=== PATIENT | male | born 1950 | race Caucasian/White ===

== ENCOUNTER 2019-02-21 08:20 | Day surgery (SDC) | payer MEDICARE ==
[~2019-02-21 08:20] MED LIST: Acetaminophen TAB* 325 MG PO PRN; Buffered Lidocaine 1% SYRIN* 1 ML/SYRINGE INTRADERM ONE
[2019-02-21] MEDS ORDERED: Midazolam* 1 MG/ML 5 ML VIAL (5 MG) ONE (10:13)
[2019-02-21 12:00] VITALS: BP 147/78
--- NOTE | 2019-02-21 12:54 | OP ---
OPERATIVE REPORT: DATE OF OPERATION: DATE OF : 54 SURGEON: Mathew Avila MD. PRE-OP DIAGNOSIS: Cataract, left eye. POST-OP DIAGNOSIS: Cataract, left eye. OPERATIVE PROCEDURE: Extracapsular cataract extraction with IOL implant, left eye. DESCRIPTION OF PROCEDURE: The patient was brought to the operating room after being given 1/2% Alcai ne with epinephrine drops in the preoperative area. The eye was prepped and draped in the usual ster ile fashion. Sterile drape and eyelid speculum were placed. Again, topical 1/2% Alcaine with epinep hrine was given. A paracentesis incision was made at the 3 o'clock position with the No.75 blade. Cl ear cornea incision 2.2 x 2.2-mm was created at the 6 o'clock position starting at the anterior limbu s using the 2.2-mm keratome. The anterior chamber was irrigated with 0.4 mL of 1% non-preservative i ntracameral lidocaine and filled with DisCoVisc. A capsulorrhexis was completed using the cystotome and the Utrata forceps. Hydrodissection was performed with balanced salt solution. The lens nucleus was removed with the Phacoemulsification handpiece without incident. Cortex was removed with the irr igation-aspiration handpiece. The capsular bag was re-inflated using DisCoVisc and an SN60WF 11.5 im plant was inserted with the shooter. The irrigation-aspiration handpiece was used to remove all resi dual DisCoVisc. The eye was refilled with balanced salt solution and the wound checked and found to be watertight. Topical Maxitrol drops were given. [id number]/[facility] #: [id number]
[2019-02-21] MEDS ORDERED: acetaZOLAMIDE TAB* 250 MG ONE (13:48)
[2019-02-21] MEDS ORDERED: Povidone Iodine 5% OPTH* 30 ML BTL ONE (13:48)
[2019-02-21] MEDS ORDERED: Lidocaine 1%* 5 ML VIAL ONE (13:48)
[2019-02-21] MEDS ORDERED: Lidocaine 2% EPI 1:200000 MPF*10-20 ML VIAL ONE (13:48)
[2019-02-21] MEDS ORDERED: Phenylephrine OPHTH SOL 2.5%* 2 ML ONE (13:48)
[2019-02-21] MEDS ORDERED: Cyclopentolate 1% OPTH.SOL* 2 ML BTL ONE (13:48)
[2019-02-21] MEDS ORDERED: Ketorolac 0.5% OPHTH (NF) 0.5 % 5 ML BTL ONE (13:48)
[2019-02-21] MEDS ORDERED: Neomycin/Polymy/Dex OPTH.SUSP* MAXITROL 0.1% 5 ML ONE (13:48)
[2019-02-21] MEDS ORDERED: Proparacaine 0.5% OPHTH.SOL* 15 ML BTL ONE (13:49)
== END 2019-02-21 12:01 | disposition home or self-care (01) ==
LOC: OREAST 08:20
PROVIDERS: ATTEND Specialist
DX: H25.812 Combined forms of age-related cataract, left eye (principal); E11.9 Type 2 diabetes mellitus without complications; Z79.84 Long term (current) use of oral hypoglycemic drugs; H43.813 Vitreous degeneration, bilateral; I25.10 Atherosclerotic heart disease of native coronary artery without angina pectoris; I25.2 Old myocardial infarction; M19.90 Unspecified osteoarthritis, unspecified site; G35 Multiple sclerosis; I10 Essential (primary) hypertension; E78.00 Pure hypercholesterolemia, unspecified
CPT/HCPCS: A9270-GY; J2250; V2632

== ENCOUNTER 2019-02-28 08:20 | Day surgery (SDC) | payer MEDICARE ==
[2019-02-28] MEDS ORDERED: Midazolam* 1 MG/ML 2 ML VIAL (2 MG) ONE ×2 (10:18→10:53)
[2019-02-28] MEDS ORDERED: Lidocaine 2% EPI 1:200000 MPF*10-20 ML VIAL ONE (11:26)
[2019-02-28] MEDS ORDERED: Cyclopentolate 1% OPTH.SOL* 2 ML BTL ONE (11:26)
[2019-02-28] MEDS ORDERED: Phenylephrine OPHTH SOL 2.5%* 2 ML ONE (11:26)
[2019-02-28] MEDS ORDERED: acetaZOLAMIDE TAB* 250 MG ONE (11:26)
[2019-02-28] MEDS ORDERED: Neomycin/Polymy/Dex OPTH.SUSP* MAXITROL 0.1% 5 ML ONE (11:26)
[2019-02-28] MEDS ORDERED: Povidone Iodine 5% OPTH* 30 ML BTL ONE (11:26)
[2019-02-28] MEDS ORDERED: Proparacaine 0.5% OPHTH.SOL* 15 ML BTL ONE (11:26)
[2019-02-28] MEDS ORDERED: Lidocaine 1%* 5 ML VIAL ONE (11:26)
[2019-02-28] MEDS ORDERED: Ketorolac 0.5% OPHTH (NF) 0.5 % 5 ML BTL ONE (11:26)
--- NOTE | 2019-02-28 11:58 | OP ---
DATE OF OPERATION: 02/28/2019. DATE OF : 1950. SURGEON: Mathew Avila M.D. PREOPERATIVE DIAGNOSIS: Cataract right eye. POSTOPERATIVE DIAGNOSIS: Cataract right eye. OPERATIVE PROCEDURE: Extracapsular cataract extraction with intraocular lens implant right eye. PROCEDURE: The patient was brought to the operating room after being given 1/2% Alcaine with epineph rine drops in the preoperative area. The eye was prepped and draped in the usual sterile fashion. S terile drape and eyelid speculum were placed. Again, topical 1/2% Alcaine with epinephrine was given . A paracentesis incision was made at the 9 o'clock position with the No.75 blade. Clear cornea inc ision 2.2 x 2.2-mm was created at the 12 o'clock position starting at the anterior limbus using the 2 .2-mm keratome. The anterior chamber was irrigated with 0.4 mL of 1% non-preservative intracameral l idocaine and filled with DisCoVisc. A capsulorrhexis was completed using the cystotome and the Utrat a forceps. Hydrodissection was performed with balanced salt solution. The lens nucleus was removed w ith the Phacoemulsification handpiece without incident. Cortex was removed with the irrigation-aspir ation handpiece. The capsular bag was re-inflated using DisCoVisc and an SN60WF 13 implant was inser lacey with the shooter. The irrigation-aspiration handpiece was used to remove all residual DisCoVisc. The eye was refilled with balanced salt solution and the wound checked and found to be watertight. Topical Maxitrol drops were given. [id number]/[facility] #: [id number]
[2019-02-28 12:47] VITALS: BP 145/61
== END 2019-02-28 13:19 | disposition home or self-care (01) ==
LOC: OREAST 08:20
PROVIDERS: ATTEND Specialist
DX: H25.811 Combined forms of age-related cataract, right eye (principal); H43.813 Vitreous degeneration, bilateral; E11.9 Type 2 diabetes mellitus without complications; Z79.84 Long term (current) use of oral hypoglycemic drugs; I25.2 Old myocardial infarction; M19.90 Unspecified osteoarthritis, unspecified site; G35 Multiple sclerosis; I10 Essential (primary) hypertension; E78.00 Pure hypercholesterolemia, unspecified
CPT/HCPCS: A9270-GY; J2250; V2632